=== PATIENT | male | born 1975 | race African-American/Black ===

== ENCOUNTER 2022-06-27 18:57 | Observation (INO) ==
[2022-06-27] MEDS ORDERED: LEVOFLOXACIN INJ 750 MG/150 ML PREMIX IV STA (21:12)
[2022-06-27 21:33] LABS: Basophils % 0.2 % (0.0-0.8); Hemoglobin 8.6 GM/DL (14.0-18.0); Immature Granulocytes % 0.5 %; Immature Granulocytes Absolute 0.03 #; Lymphocytes # 0.5 10*3/uL (1.4-4.0); Mean Corpuscular HGB Conc 29.7 GM/DL (32-36); Mean Corpuscular Volume 81.9 FL (87-102); Mean Platelet Volume 9.5 FL (9.6-12.0); Monocytes # 0.5 10*3/uL (0.11-0.8); Neutrophils % 83.3 % (38.7-73.9); Platelet Count 230 T/CUMM (130-400); Red Blood Count 3.54 MC/CUMM (3.8-5.5); Red Cell Distribution Width 17.3 % (9.3-17.3)
[2022-06-27] MEDS ORDERED: ONDANSETRON 4 MG/2 ML VIAL IV PRN (21:56)
[2022-06-27] MEDS ORDERED: ZALEPLON 5 MG CAPSULE PO PRN (21:56)
[2022-06-27] MEDS ORDERED: ACETAMINOPHEN 325 MG TABLET PO PRN (21:56)
[2022-06-27] MEDS ORDERED: DOCUSATE SODIUM 100 MG CAPSULE PO PRN (21:56)
[2022-06-27 22:06] LABS: Albumin 4.2 G/DL (3.4-5.0); Bilirubin,Total 0.5 MG/DL (0.20-1.00); Calcium 9.2 MG/DL (8.5-10.1); Osmolality,Calculated 283.4 MOS/KG (273-304); Total Protein 7.7 G/DL (6.4-8.2)
[2022-06-27] MEDS ORDERED: amLODIPine 5 MG TABLET PO STA (22:33)
[2022-06-27] MEDS ORDERED: methylPREDNISolone SOD SUC 40 MG/1 ML VIAL IV STA (22:36)
[2022-06-27] MEDS ORDERED: ALBUTEROL/IPRATROPIUM 3 ML NEB RESP TX ONE (22:58)
[2022-06-27] MEDS: ALBUTEROL/IPRATROPIUM 3 ML NEB RESP TX SCH (23:05)
[2022-06-27] MEDS: guaiFENesin/DM ER 600-30 MG TABLET PO SCH (23:32)
[2022-06-28 04:48] LABS: Hematocrit 29.2 VOL% (42.0-52.0); Hemoglobin 8.6 GM/DL (14.0-18.0); Immature Granulocytes % 0.8 %; Immature Granulocytes Absolute 0.05 #; Lymphocytes # 0.3 10*3/uL (1.4-4.0); Lymphocytes % 5.3 % (21.2-54.2); Mean Corpuscular HGB Conc 29.5 GM/DL (32-36); Mean Corpuscular Volume 81.8 FL (87-102); Mean Platelet Volume 9.8 FL (9.6-12.0); Monocytes # 0.3 10*3/uL (0.11-0.8); Monocytes % 3.9 % (1.7-12.7); Platelet Count 242 T/CUMM (130-400); Red Blood Count 3.57 MC/CUMM (3.8-5.5); Red Cell Distribution Width 17.2 % (9.3-17.3); White Blood Count 6.5 T/CUMM (4-12)
[2022-06-28 05:25] LABS: Calcium 9.2 MG/DL (8.5-10.1); Osmolality,Calculated 278.8 MOS/KG (273-304); Potassium 4.4 MMOL/L (3.5-5.1); Thyroid Stimulating Hormone 0.367 uIU/ml (0.358-3.74)
[2022-06-28] MEDS: ALBUTEROL/IPRATROPIUM 3 ML NEB RESP TX SCH ×3 (07:54→19:47)
[2022-06-28] MEDS ORDERED: amLODIPine 5 MG TABLET PO SCH (09:00)
[2022-06-28] MEDS: methylPREDNISolone SOD SUC 40 MG/1 ML VIAL IV SCH ×2 (09:13→22:04)
[2022-06-28] MEDS: ENOXAPARIN 40 MG/0.4 ML SYRINGE SUBCUT SCH (09:14)
[2022-06-28] MEDS: guaiFENesin/DM ER 600-30 MG TABLET PO SCH ×2 (09:14→22:03)
[2022-06-28] MEDS: hydrALAZINE 25 MG TABLET PO SCH ×3 (12:26→17:01)
[2022-06-28] MEDS: amLODIPine 10 MG TABLET PO SCH (12:27)
[2022-06-28] MEDS ORDERED: TERAZOSIN 1 MG CAPSULE PO SCH (21:00)
[2022-06-28] MEDS ORDERED: LEVOFLOXACIN INJ 750 MG/150 ML PREMIX IV SCH (22:00)
[2022-06-29] MEDS: hydrALAZINE 25 MG TABLET PO SCH ×2 (00:11→06:48)
[2022-06-29] MEDS: ALBUTEROL/IPRATROPIUM 3 ML NEB RESP TX SCH ×3 (01:58→12:40)
[2022-06-29 04:47] LABS: Hematocrit 29.7 VOL% (42.0-52.0); Hemoglobin 8.7 GM/DL (14.0-18.0); Immature Granulocytes % 0.4 %; Immature Granulocytes Absolute 0.03 #; Lymphocytes # 0.4 10*3/uL (1.4-4.0); Lymphocytes % 6.2 % (21.2-54.2); Mean Corpuscular HGB Conc 29.3 GM/DL (32-36); Mean Corpuscular Volume 83.9 FL (87-102); Mean Platelet Volume 10.2 FL (9.6-12.0); Monocytes # 0.4 10*3/uL (0.11-0.8); Monocytes % 5.4 % (1.7-12.7); Platelet Count 268 T/CUMM (130-400); Red Blood Count 3.54 MC/CUMM (3.8-5.5); Red Cell Distribution Width 17.6 % (9.3-17.3); White Blood Count 7.1 T/CUMM (4-12)
[2022-06-29 05:13] LABS: Calcium 8.8 MG/DL (8.5-10.1); Osmolality,Calculated 283.8 MOS/KG (273-304); Potassium 4.4 MMOL/L (3.5-5.1)
[2022-06-29] MEDS: guaiFENesin/DM ER 600-30 MG TABLET PO SCH (08:17)
[2022-06-29] MEDS: amLODIPine 10 MG TABLET PO SCH (08:17)
[2022-06-29] MEDS: methylPREDNISolone SOD SUC 40 MG/1 ML VIAL IV SCH (08:18)
[2022-06-29] MEDS: ENOXAPARIN 40 MG/0.4 ML SYRINGE SUBCUT SCH (08:20)
[2022-06-29] MEDS ORDERED: INFLUENZA VIRUS VACCINE 0.5 ML SYRINGE IM ONE (08:23)
[2022-06-29 11:49] VITALS: BP 138/84
== END 2022-06-29 13:46 | disposition home or self-care (01) ==
LOC: N.ED 18:57 → N.EDINP 18:57 → SUATTDRO 21:54 → N.2W 06-28 01:03
PROVIDERS: ADMIT Internal Medicine; ATTEND Internal Medicine